=== PATIENT | male | born 1955 | race Caucasian/White ===

== ENCOUNTER 2017-04-13 11:33 | Observation (INO) | payer MEDICARE ==
[~2017-04-13] VITALS: Ht 180.3 cm; Wt 94.5 kg
[~2017-04-13 11:33] MED LIST: GEMF600T3 PO; GLIP5TAB13 PO; LISI1TAB8 PO; OMEP40CA36 PO; TAMS0.4C2 PO
[2017-04-13 11:56] LABS: BASOPHILS # (AUTO) 0.1 10^3/uL (0.0-0.1); BASOPHILS % (AUTO) 1 % (0-10); EOSINOPHILS # (AUTO) 0.1 10^3/uL (0.0-0.3); EOSINOPHILS % (AUTO) 1 % (0-10); HEMATOCRIT 42 % (40-54); HEMOGLOBIN 15.1 G/DL (13.3-17.7); LYMPHOCYTES # (AUTO) 2.1 X 10^3 (1.0-4.0); LYMPHOCYTES % (AUTO) 20 % (12-44); MEAN CORPUSCULAR HEMOGLOBIN 29 PG (25-34); MEAN CORPUSCULAR HGB CONC 36 G/DL (32-36); MEAN CORPUSCULAR VOLUME 82 FL (80-99); MEAN PLATELET VOLUME 10.2 FL (7.4-10.4); MONOCYTES # (AUTO) 0.8 X 10^3 (0.0-1.0); MONOCYTES % (AUTO) 8 % (0-12); NEUTROPHILS # (AUTO) 7.4 X 10^3 (1.8-7.8); NEUTROPHILS % (AUTO) 71 % (42-75); PLATELET COUNT 385 10^3/uL (130-400); RED BLOOD COUNT 5.14 10^6/uL (4.35-5.85); RED CELL DISTRIBUTION WIDTH 13.5 % (10.0-14.5); WHITE BLOOD COUNT 10.5 10^3/uL (4.3-11.0)
[2017-04-13 12:13] LABS: ALANINE AMINOTRANSFERASE 18 U/L (0-55); ALBUMIN 3.9 GM/DL (3.2-4.5); ALKALINE PHOSPHATASE 150 U/L (40-136); BILIRUBIN,TOTAL 0.6 MG/DL (0.1-1.0); BUN/CREATININE RATIO 11; CARBON DIOXIDE 20 MMOL/L (21-32); CHLORIDE 97 MMOL/L (98-107); CREATININE SERUM 1.21 MG/DL (0.60-1.30); GFR ESTIMATED > 60; LIPASE 22 U/L (8-78); POTASSIUM 4.1 MMOL/L (3.6-5.0); SODIUM 132 MMOL/L (135-145); TOTAL PROTEIN 7.8 GM/DL (6.4-8.2)
[2017-04-13 12:21] LABS: GLUCOSE 490 MG/DL (70-105)
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
[2017-04-13] MEDS ORDERED: inSUlin (REGULAR) HUMAN 1 UNIT/0.01 ML (CHARGE PER UNIT) IV STA (12:26)
[2017-04-13] MEDS ORDERED: KETOROLAC 30 MG/ML VIAL IVP STA (12:26)
[2017-04-13] MEDS ORDERED: NS IV 1000 ML 1,000 ML IV SCH (12:26)
--- NOTE | 2017-04-13 13:17 | Diagnostic Imaging Report ---
PROCEDURE: CT abdomen and pelvis without contrast. TECHNIQUE: Multiple contiguous axial images were obtained through the abdomen and pelvis without the use of intravenous contrast. INDICATION: Right-sided pain and discomfort near the tip of the liver. History of appendectomy. COMPARISON: None. FINDINGS: The lung bases are clear. The heart is normal in size. There is no pericardial effusion. There is fatty infiltration of the liver with no focal hepatic lesions seen. The spleen appears normal. The pancreas is normal. The adrenal glands are normal. The kidneys appear normal with no hydronephrosis or obstructing stones. The bowel loops are nondistended without evidence of obstruction. The appendix is not seen. No free fluid or free air is seen in the abdomen. There is a focal area of fat stranding and inflammatory change lateral to the right lobe of the liver which measures approximately 10.7 x 3.0 cm in the axial plane (image 35 series 2), and up to 9.8 cm craniocaudal. This appears most consistent with an omental infarct. The urinary bladder is mildly distended. No pelvic masses or lymphadenopathy is seen. Phleboliths are noted in the pelvis. There are degenerative changes at the lumbosacral junction with bilateral L5 pars defects and grade 1-2 anterolisthesis. IMPRESSION: 1. Moderately large area of fat stranding and inflammation lateral to the right lobe of the liver, most consistent with an omental infarct. 2. Degenerative changes at the lumbosacral junction with bilateral L5 pars defects. Dictated by: Dictated on workstation # [id number]
[2017-04-13 14:17] LABS: BILIRUBIN,URINE NEGATIVE (NEGATIVE); CLARITY,URINE CLEAR; COLOR,URINE YELLOW; GLUCOSE, URINE (UA) 4+ (NEGATIVE); KETONES,URINE NEGATIVE (NEGATIVE); LEUKOCYTE ESTERASE ,URINE NEGATIVE (NEGATIVE); NITRITE,URINE NEGATIVE (NEGATIVE); PH,URINE 6 (5-9); PROTEIN,URINE 3+ (NEGATIVE); UROBILINOGEN,URINE NORMAL (NORMAL)
[2017-04-13 14:23] LABS: BACTERIA,URINE NEGATIVE /HPF; RBC,URINE RARE /HPF; WBC,URINE RARE /HPF
[2017-04-13] MEDS ORDERED: LEVOFLOXACIN 750 MG/150 ML IV 150 ML IV STA (15:03)
--- OUTSIDE RECORDS SUMMARY | 2017-04-13 17:23 | XMS REPORT | Continuity of Care Document ---
Author Author [facility] Address Unknown Phone Unavailable Allergies Active Description Code Type Severity Reaction Onset Reported/Identified Relationship to Patient Clinical Status Yes codeine Drug Allergy N/A N/A 12/25/2012 Yes morphine Drug Allergy N/A N/A 12/25/2012 Medications There is no data. Problems Date Dx Coded Attending Type Code Diagnosis Diagnosed By 12/25/2012 KINGS NIETO DO 250.00 DIABETES MELLITUS WITHOUT MENTION OF COMPLICATION TYPE II OR UNSPECIFIED TYPE NOT STATED UNCONTROLLED 12/25/2012 KINGS NIETO DO 300.02 GENERALIZED ANXIETY DISORDER 12/25/2012 KINGS NIETO DO 787.1 HEARTBURN 12/25/2012 KINGS NIETO DO 250.00 DIABETES MELLITUS WITHOUT MENTION OF COMPLICATION TYPE II OR UNSPECIFIED TYPE NOT STATED UNCONTROLLED 12/25/2012 KINGS NIETO DO 300.02 GENERALIZED ANXIETY DISORDER 12/25/2012 KINGS NIETO DO 787.1 HEARTBURN 12/25/2012 ASUNCION TURCIOS APRN 250.00 DIABETES MELLITUS WITHOUT MENTION OF COMPLICATION TYPE II OR UNSPECIFIED TYPE NOT STATED UNCONTROLLED 12/25/2012 ASUNCION TURCIOS APRN 300.02 GENERALIZED ANXIETY DISORDER 12/25/2012 ASUNCION TURCIOS APRN 787.1 HEARTBURN Procedures Code Description [place] [address] A1C (IN-HOUSE) 02/24/2013 PODIATRY VIN RAINEY 02/24/2013 Results There is no data. Encounters ACCT No. Visit Date/Time Discharge Status Pt. Type Provider Facility Loc./Unit Complaint [id number] 02/24/2013 11:17:00 02/24/2013 23:59:59 CLS Outpatient ASUNCION TURCIOS APRN [id number] 02/24/2013 11:17:00 02/24/2013 23:59:59 CLS Outpatient KINGS NIETO DO [id number] 12/25/2012 15:06:00 12/25/2012 23:59:59 CLS Outpatient KINGS NIETO DO
[2017-04-13] MEDS ORDERED: HYDROcodone/APAP 5 MG/325 MG (LORTAB) TAB PO PRN (18:00)
[2017-04-13] MEDS ORDERED: ONDANSETRON 4 MG/2 ML (SDV) Z0FRAN IV PRN (18:00)
[2017-04-13] MEDS ORDERED: CATHETER FLUSH 10 ML SYR IV PRN (18:00)
[2017-04-13] MEDS ORDERED: KETOROLAC 30 MG/ML VIAL IV PRN (18:00)
[2017-04-13] MEDS ORDERED: MONT10TA21 PO (18:11)
[2017-04-13] MEDS ORDERED: RIVA6CAP5 PO (18:11)
[2017-04-13] MEDS ORDERED: CETI10CA PO (18:11)
[2017-04-13] MEDS ORDERED: ASPI-808 PO (18:11)
[2017-04-13] MEDS ORDERED: CARI350T PO (18:11)
[2017-04-13] MEDS ORDERED: LEVE500T99 PO (18:11)
[2017-04-13] MEDS ORDERED: GLIP5TAB13 PO (18:11)
[2017-04-13] MEDS ORDERED: OLAN5TAB25 PO (18:11)
[2017-04-13] MEDS ORDERED: ALPR1TAB2 PO (18:11)
[2017-04-13] MEDS ORDERED: VENL75CA PO (18:11)
[2017-04-13] MEDS ORDERED: GEMF600T PO (18:11)
[2017-04-13] MEDS ORDERED: AMLO5TAB4 PO (18:11)
[2017-04-13] MEDS ORDERED: PROM25TA14 PO (18:11)
[2017-04-13] MEDS ORDERED: OMEP40CA36 PO (18:11)
[2017-04-13] MEDS ORDERED: MULT-1029 PO (18:11)
[2017-04-13] MEDS ORDERED: ATOR10TA PO (18:11)
[2017-04-13] MEDS ORDERED: TAMS0.4C98 PO (18:11)
[2017-04-13] MEDS ORDERED: TIZA4TAB3 PO (18:11)
[2017-04-13] MEDS: FAMOTIDINE 20MG/2ML IV (PEPCID) IV SCH (18:26)
[2017-04-13] MEDS: NS W/KCL 20 MEQ/L 1,000 ML IV SCH (18:26)
[2017-04-13] MEDS: metroNIDAZOLE 500 MG/100 ML IVPB (PRE-MIX) IV SCH (18:27)
[2017-04-13] MEDS ORDERED: PATIENT MAY USE OWN MEDS, ALL MC SCH (18:45)
[2017-04-13] MEDS ORDERED: PROMETHAZINE 25 MG (PHENERGAN) TAB PO PRN (18:45)
[2017-04-13] MEDS ORDERED: CARISOPRODOL 350 MG (SOMA) TAB PO PRN (18:45)
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
[2017-04-13 20:28] VITALS: BP 153/87
[2017-04-13] MEDS: inSUlin (REGULAR) HUMAN 1 UNIT/0.01 ML (CHARGE PER UNIT) SC SCH (20:37)
[2017-04-13] MEDS: amLODIPine 5 MG (NORVASC) TAB PO SCH (20:38)
[2017-04-13] MEDS: ALPRAZolam 1 MG (XANAX) TAB PO SCH (20:38)
[2017-04-13] MEDS: OLANZapine 5 MG (ZyPREXA) TAB PO SCH (20:41)
[2017-04-13] MEDS: LEVETIRACETAM 500 MG (KEPPRA) TAB PO SCH (20:41)
[2017-04-13] MEDS: RIVASTIGMINE 6 MG PO SCH (20:44)
[2017-04-13] MEDS ORDERED: GEMFIBROZIL 600 MG (LOPID) TAB PO SCH (21:00)
[2017-04-13] MEDS ORDERED: VENlafaxine XR 75 MG (EFFEXOR XR) CAP PO SCH (21:00)
[2017-04-13] MEDS ORDERED: MONTELUKAST 10 MG (SINGULAIR) TAB PO SCH (21:00)
[2017-04-13] MEDS ORDERED: TAMSULOSIN 0.4 MG (FLOMAX) CAP PO SCH (21:00)
[2017-04-13] MEDS ORDERED: ATORVASTATIN 10 MG (LIPITOR) TABLET PO SCH (21:00)
[2017-04-14] VITALS: BP 116/55
[2017-04-14] MEDS: NS W/KCL 20 MEQ/L 1,000 ML IV SCH ×3 (01:46→08:38)
[2017-04-14] MEDS: metroNIDAZOLE 500 MG/100 ML IVPB (PRE-MIX) IV SCH ×2 (01:47→10:18)
[2017-04-14 04:00] VITALS: BP 102/55
[2017-04-14] MEDS: inSUlin (REGULAR) HUMAN 1 UNIT/0.01 ML (CHARGE PER UNIT) SC SCH ×2 (05:40→11:16)
[2017-04-14 06:09] LABS: BASOPHILS % (AUTO) 1 % (0-10); EOSINOPHILS # (AUTO) 0.1 10^3/uL (0.0-0.3); EOSINOPHILS % (AUTO) 2 % (0-10); HEMATOCRIT 37 % (40-54); LYMPHOCYTES # (AUTO) 1.7 X 10^3 (1.0-4.0); LYMPHOCYTES % (AUTO) 20 % (12-44); MEAN CORPUSCULAR HEMOGLOBIN 29 PG (25-34); MEAN CORPUSCULAR HGB CONC 35 G/DL (32-36); MEAN CORPUSCULAR VOLUME 83 FL (80-99); MONOCYTES # (AUTO) 0.7 X 10^3 (0.0-1.0); MONOCYTES % (AUTO) 9 % (0-12); NEUTROPHILS # (AUTO) 5.7 X 10^3 (1.8-7.8); NEUTROPHILS % (AUTO) 69 % (42-75); PLATELET COUNT 329 10^3/uL (130-400); RED BLOOD COUNT 4.49 10^6/uL (4.35-5.85); RED CELL DISTRIBUTION WIDTH 13.2 % (10.0-14.5); WHITE BLOOD COUNT 8.2 10^3/uL (4.3-11.0)
[2017-04-14 06:44] LABS: ALANINE AMINOTRANSFERASE 13 U/L (0-55); ALBUMIN 3.3 GM/DL (3.2-4.5); ALKALINE PHOSPHATASE 131 U/L (40-136); BILIRUBIN,TOTAL 0.5 MG/DL (0.1-1.0); BUN/CREATININE RATIO 12; CALCIUM 8.9 MG/DL (8.5-10.1); CARBON DIOXIDE 22 MMOL/L (21-32); CHLORIDE 107 MMOL/L (98-107); CREATININE SERUM 0.82 MG/DL (0.60-1.30); GFR ESTIMATED > 60; GLUCOSE 110 MG/DL (70-105); SODIUM 138 MMOL/L (135-145); TOTAL PROTEIN 6.4 GM/DL (6.4-8.2)
[2017-04-14] MEDS ORDERED: Omeprazole 40 MG CAPSULE PO SCH (07:00)
[2017-04-14] MEDS ORDERED: glipiZIDE 5 MG (GLUCOTROL) TAB PO SCH (07:00)
[2017-04-14] MEDS ORDERED: MULTIVIT W/MINERALS TAB (THERAGRAN M) PO SCH (07:00)
[2017-04-14 08:00] VITALS: BP 114/55
[2017-04-14] MEDS: FAMOTIDINE 20MG/2ML IV (PEPCID) IV SCH (08:38)
[2017-04-14] MEDS: LEVETIRACETAM 500 MG (KEPPRA) TAB PO SCH (08:40)
[2017-04-14] MEDS: RIVASTIGMINE 6 MG PO SCH (08:41)
[2017-04-14] MEDS: OLANZapine 5 MG (ZyPREXA) TAB PO SCH (08:41)
[2017-04-14] MEDS: amLODIPine 5 MG (NORVASC) TAB PO SCH (08:42)
[2017-04-14] MEDS: ALPRAZolam 1 MG (XANAX) TAB PO SCH (08:45)
[2017-04-14] MEDS ORDERED: LEVOFLOXACIN 750 MG/D5W 150 ML PRE-MIX IV SCH (09:00)
[2017-04-14] MEDS ORDERED: ASPIRIN 325 MG (5 GR) TABLET PO SCH (09:00)
--- NOTE | 2017-04-14 10:08 | Progress Note ---
Subjective Date Seen by Provider: Apr 14, 2017 Time Seen by Provider: 10:05 Subjective/Events-last exam Feeling better today. Pain comes and goes, but less. Denies any n/v fever sweats chills shortness of breath or chest pain. Objective Exam Vital Signs Date Time Temp Pulse Resp B/P (MAP) Pulse Ox O2 Delivery O2 Flow Rate FiO2 04/14/17 04:00 97.8 75 16 102/55 (71) 96 Room Air 04/14/17 00:00 98.7 73 18 116/55 (75) 95 Room Air 04/13/17 20:28 98.9 71 16 153/87 (109) 99 Room Air 04/13/17 17:05 Room Air 04/13/17 16:53 97.6 106 20 140/90 (113) 96 04/13/17 11:41 97.6 106 20 140/100 (113) 96 Room Air I & O 04/14/17 07:00 Intake Total 1750 ml Output Total 0 ml Balance 1750 ml Capillary Refill : Less Than 3 Seconds General Appearance: No Apparent Distress HEENT: PERRL/EOMI, Normal ENT Inspection Neck: Normal Inspection, Non Tender Respiratory: No Accessory Muscle Use, No Respiratory Distress Cardiovascular: Regular Rate, Rhythm Gastrointestinal: soft (ruq with very minimal tenderness and can feel fullness to this area), No guarding, No rebound Extremity: Normal Inspection, Normal Range of Motion, Non Tender Neurologic/Psychiatric: Alert, No Motor/Sensory Deficits, Normal Mood/Affect Skin: Warm/Dry Results Lab Laboratory Tests 04/13/17 11:50: White Blood Count 10.5, Red Blood Count 5.14, Hemoglobin 15.1, Hematocrit 42, Mean Corpuscular Volume 82, Mean Corpuscular Hemoglobin 29, Mean Corpuscular Hemoglobin Concent 36, Red Cell Distribution Width 13.5, Platelet Count 385, Mean Platelet Volume 10.2, Neutrophils (%) (Auto) 71, Lymphocytes (%) (Auto) 20 , Monocytes (%) (Auto) 8, Eosinophils (%) (Auto) 1, Basophils (%) (Auto) 1, Neutrophils # (Auto) 7.4, Lymphocytes # (Auto) 2.1, Monocytes # (Auto) 0.8, Eosinophils # (Auto) 0.1, Basophils # (Auto) 0.1, Sodium Level 132L, Potassium Level 4.1, Chloride Level 97L, Carbon Dioxide Level 20L, Anion Gap 15H, Blood Urea Nitrogen 13, Creatinine 1.21, Estimat Glomerular Filtration Rate > 60, BUN/ Creatinine Ratio 11, Glucose Level 490*H, Calcium Level 10.0, Total Bilirubin 0.6, Aspartate Amino Transf (AST/SGOT) 25, Alanine Aminotransferase (ALT/SGPT) 18, Alkaline Phosphatase 150H, Total Protein 7.8, Albumin 3.9, Lipase 22 04/13/17 13:50: 04/13/17 14:05: Urine Color YELLOW, Urine Clarity CLEAR, Urine pH 6, Urine Specific [place] 1.015L, Urine Protein 3+H, Urine Glucose (UA) 4+H, Urine Ketones NEGATIVE, Urine Nitrite NEGATIVE, Urine Bilirubin NEGATIVE, Urine Urobilinogen NORMAL, Urine Leukocyte Esterase NEGATIVE, Urine RBC (Auto) 1+H, Urine RBC RARE, Urine WBC RARE, Urine Squamous Epithelial Cells NONE, Urine Crystals NONE, Urine Bacteria NEGATIVE, Urine Casts PRESENT, Urine Hyaline Casts 2-5H, Urine Mucus NEGATIVE, Urine Culture Indicated NO 04/13/17 15:22: Glucometer 190H 04/13/17 19:55: Glucometer 222H 04/14/17 05:38: Glucometer 103 04/14/17 05:48: White Blood Count 8.2, Red Blood Count 4.49, Hemoglobin 13.0L, Hematocrit 37L, Mean Corpuscular Volume 83, Mean Corpuscular Hemoglobin 29, Mean Corpuscular Hemoglobin Concent 35, Red Cell Distribution Width 13.2, Platelet Count 329, Mean Platelet Volume 10.0, Neutrophils (%) (Auto) 69, Lymphocytes (%) (Auto) 20 , Monocytes (%) (Auto) 9, Eosinophils (%) (Auto) 2, Basophils (%) (Auto) 1, Neutrophils # (Auto) 5.7, Lymphocytes # (Auto) 1.7, Monocytes # (Auto) 0.7, Eosinophils # (Auto) 0.1, Basophils # (Auto) 0.0, Sodium Level 138, Potassium Level 4.0, Chloride Level 107, Carbon Dioxide Level 22, Anion Gap 9, Blood Urea Nitrogen 10, Creatinine 0.82, Estimat Glomerular Filtration Rate > 60, BUN/ Creatinine Ratio 12, Glucose Level 110H, Calcium Level 8.9, Total Bilirubin 0.5 , Aspartate Amino Transf (AST/SGOT) 22, Alanine Aminotransferase (ALT/SGPT) 13, Alkaline Phosphatase 131, Total Protein 6.4, Albumin 3.3 Assessment/Plan Assessment/Plan Assessment/Plan 61 year old male with right upper quadrant pain. Omental infarct vs short segment colitis, hyperglycemia, hyponatremia labs improved iv fluids pain control clear liquid diet repeat labs in am conservative management at this time, no surgical intervention at this time will need colonoscopy in about 6 weeks to further assess colon. medical management Clinical Quality Measures DVT/VTE Risk/Contraindication: Risk Factor Score Per Nursin RFS Level Per Nursing on Admit: 2=Moderate EVGENY HENRY DO Apr 14, 2017 10:08
[2017-04-14] MEDS ORDERED: INFLUENZA TRIvalent 2017-2018 0.5 ML/45 MCG SYR IM ONE (10:45)
--- NOTE | 2017-04-14 11:18 | Short Stay Summary-Hospitalist ---
HPI History of Present Illness: HPI/Chief Complaint CC: Acute colitis right colon HPI: This is a 61-year-old white male disabled from back injury of Alanna Jones with Dr. Yusef cerna in [place] who presents to the ER with abdominal pain and fever. Apparently he's had right upper quadrant abdominal pain and diarrhea on and off for several months that it worsened to the point it concerned him enough to report to the ER. He was found to have an isolated colitis on CT scan and Dr. Womack was consulted. He was placed on empiric antibiotics in case this was diverticulitis but upon further assessment and evaluation of other data it was assessed that this was a self-limited colitis that did not require IV antibiotics or antibiotics at all and will need a follow -up colonoscopy and evaluation as an outpatient. The CT scan had a vague area of concern of omental infarction but that was inconsistent with the clinical scenario. He is able to eat and drink and pain is resolved and wishes to go home. 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) Alcohol Use: Denies Use Recreational Drug Use: No Smoking Status: Former Smoker (Quit 8 years ago) Former Smoker, Quit: Apr 13, 2009 Type Used: Cigarettes Physical Abuse Screen: No Sexual Abuse: No Recent Foreign Travel: No Contact w/other who traveled: No Recent Hopitalizations: No Recent Infectious Disease Expo: No Immunizations Up To Date Pediatric: Yes Seasonal Allergies Seasonal Allergies: No Surgeries Yes (back) Appendectomy, Bowel Surgery (Partial colon resection) Respiratory Yes COPD Currently Using CPAP: No Currently Using BIPAP: No Cardiovascular Yes Coronary Artery Disease, High Cholesterol, Hypertension Neurological Yes (restless legs, EARLY ALZHIEMERS) Seizure Disorder Reproductive System Sexually Transmitted Disease: No HIV/AIDS: No Genitourinary Yes Prostate Problems Gastrointestinal Yes Gastroesophageal Reflux, Diverticulosis Musculoskeletal Yes Back Injury, Chronic Back Pain Endocrine History of Endocrine Disorders: Yes Endocrine Disorders: Diabetes, Non-Insulin dep HEENT History of HEENT Disorders: No Cancer Yes Skin Type of Treatment: Surgical Intervention Psychosocial History of Psychiatric Problem: Yes Behavioral Health Disorders: Anxiety, Depression Integumentary History of Skin or Integumenta: No (RING WORM ON HANDS-TREATED) Blood Transfusions History of Blood Disorders: No Adverse Reaction to a Blood Tr: No Family Medical History Significant Family History: No Pertinent Family Hx Family Hx: Alzheimer's disease 19 MOTHER Cardiovascular disease 19 FATHER 19 MOTHER Completed stroke 19 FATHER Respiratory disorder 19 FATHER Review of Systems Constitutional: see HPI, fever EENTM: no symptoms reported Respiratory: no symptoms reported Cardiovascular: no symptoms reported Gastrointestinal: abdominal pain (RUQ) Genitourinary: no symptoms reported Musculoskeletal: no symptoms reported Skin: no symptoms reported Psychiatric/Neurological: No Symptoms Reported All Other Systems Reviewed Negative Unless Noted: Yes Physical Exam Physical Exam Vital Signs Vital Signs - First Documented 04/13/17 11:41 Temp 97.6 Pulse 106 Resp 20 B/P (MAP) 140/100 (113) Pulse Ox 96 O2 Delivery Room Air Capillary Refill : Less Than 3 Seconds General Appearance: No Apparent Distress, WD/WN, Chronically ill Eyes: Bilateral Eye Normal Inspection, Bilateral Eye PERRL HEENT: PERRL/EOMI, Normal ENT Inspection, Pharynx Normal Neck: Full Range of Motion, Normal Inspection, Non Tender, Supple, Carotid Bruit Respiratory: Chest Non Tender, Lungs Clear, Normal Breath Sounds, No Accessory Muscle Use, No Respiratory Distress Cardiovascular: Regular Rate, Rhythm, No Edema, No Gallop, No JVD, No Murmur, Normal Peripheral Pulses Gastrointestinal: Normal Bowel Sounds, No Organomegaly, No Pulsatile Mass, Non Tender (No tenderness on exam today), Soft Back: Normal Inspection, No CVA Tenderness, No Vertebral Tenderness Extremity: Normal Capillary Refill, Normal Inspection, Normal Range of Motion, Non Tender, No Calf Tenderness, No Pedal Edema Neurologic/Psychiatric: Alert, Oriented x3, No Motor/Sensory Deficits, Normal Mood/Affect Skin: Normal Color, Warm/Dry Lymphatic: No Adenopathy Results Results/Procedures Lab Laboratory Tests 04/13/17 11:50 04/14/17 05:48 Short Stay Diagnosis Discharge Diagnosis-Short Stay Admission Diagnosis Assessment: Colitis right colon with history of colon resection partial Diabetes mellitus Seizure disorder Early Alzheimer's dementia BPH GERD Hypertension Former smoker Final Discharge Diagnosis Assessment: Colitis right colon with history of colon resection partial assessed to be self- limited will not require IV antibiotics or antibiotics at discharge Diabetes mellitus Seizure disorder Early Alzheimer's dementia BPH GERD Hypertension Former smoker Conclusion Plan Plan: Discharge home Has a follow-up in primary care clinic next week anyway [place] diet Rest and drink plenty of fluids Resume all home meds Return if anything worsens Needs colonoscopy as an outpatient Clinical Quality Measures DVT/VTE Risk/Contraindication: Risk Factor Score Per Nursin RFS Level Per Nursing on Admit: 2=Moderate CARMELA LEVINE DO Apr 14, 2017 11:18
[2017-04-14 12:00] VITALS: BP 114/55
== END 2017-04-14 11:14 | disposition home or self-care (01) ==
LOC: EDUNIT# 11:33 → ER 11:36 → UNDOADMOB 16:41 → 4TH 16:41 → UNDODISOB 04-14 12:00
PROVIDERS: ADMIT Internal Medicine; ATTEND Internal Medicine
DX: K52.9 Noninfective gastroenteritis and colitis, unspecified (principal); E87.1 Hypo-osmolality and hyponatremia; E11.65 Type 2 diabetes mellitus with hyperglycemia; I25.10 Atherosclerotic heart disease of native coronary artery without angina pectoris; I10 Essential (primary) hypertension; E78.00 Pure hypercholesterolemia, unspecified; G40.909 Epilepsy, unspecified, not intractable, without status epilepticus; G25.81 Restless legs syndrome; G30.9 Alzheimer's disease, unspecified; F02.80 Dementia in other diseases classified elsewhere, unspecified severity, without behavioral disturbance, psychotic disturbance, mood disturbance, and anxiety; N40.0 Benign prostatic hyperplasia without lower urinary tract symptoms; Z87.891 Personal history of nicotine dependence; Z79.82 Long term (current) use of aspirin; Z79.899 Other long term (current) drug therapy
CPT/HCPCS: 36415; 74176; 80053; 80177; 81000; 82962; 83690; 85025; 96361; 96374; 96375

== ENCOUNTER 2017-12-18 18:11 | Emergency (ER) | payer MEDICARE, MEDICAID ==
[~2017-12-18] VITALS: Ht 172.7 cm; Wt 90.7 kg
[~2017-12-18 18:11] MED LIST changes: +ALPR1TAB2 PO; +AMLO5TAB4 PO; +ASPI-808 PO; +ATOR10TA PO; +CARI350T PO; +CETI10CA PO; +GEMF600T PO; -GEMF600T3 PO; +GEMF600T4 PO; +LEVE500T99 PO; +MONT10TA21 PO; +MULT-1029 PO; +OLAN5TAB25 PO; +PROM25TA14 PO; +RIVA6CAP5 PO; +TAMS0.4C98 PO; +TIZA4TAB3 PO; +VENL75CA PO
--- OUTSIDE RECORDS SUMMARY | 2017-12-18 18:16 | XMS REPORT ---
Author Author JOEY DUQUE [facility] Address [address] [place] [address] Care Team Providers Care Loading Rack Supervisor Name Role Phone NETO JOEY Unavailable PROBLEMS Type Condition ICD9-CM Code [id number] Code Onset Dates Condition Status SNOMED Code Problem Alzheimer''s disease with early onset G30.0 Active 7652870 Problem COPD mixed type J44.9 Active 95979077 Problem Type 2 diabetes mellitus with hyperglycemia, without long-term current use of insulin E11.65 Active 28941766 Problem Mixed hyperlipidemia E78.2 Active 560346508 Problem Dementia in other diseases classified elsewhere with behavioral disturbance F02.81 Active 766613190 Problem Seizure disorder G40.909 Active 070750558 Problem Chronic GERD K21.9 Active 730705400 Problem Mood disorder F39 Active 49665124 Problem Essential hypertension I10 Active 01402612 ALLERGIES Substance Reaction Event Type Date Status Morphine vomiting Drug Allergy Oct, Active Codeine vomiting Drug Allergy Oct, Active ENCOUNTERS Encounter Location Date Diagnosis [id number] [place] [address] [id number] Oct, Alzheimer''s disease with early onset G30.0 ; Dementia in other diseases classified elsewhere with behavioral disturbance F02.81 ; Type 2 diabetes mellitus with hyperglycemia, without long-term current use of insulin E11.65 ; Seizure disorder G40.909 ; Mixed hyperlipidemia E78.2 ; Mood disorder F39 ; COPD mixed type J44.9 ; Chronic GERD K21.9 ; Essential hypertension I10 and History of BPH Z87.438 [address] [place] [id number] Sep, Alzheimer''s disease with early onset G30.0 ; Type 2 diabetes mellitus with hyperglycemia, without long-term current use of insulin E11.65 ; Seizure disorder G40.909 and Mixed hyperlipidemia E78.2 [place] [id number] [place] [address] [id number] Jul, Mood disorder F39 [facility] [id number] [place] [address] [id number] May, Alzheimer''s disease with early onset G30.0 ; Dementia in other diseases classified elsewhere with behavioral disturbance F02.81 ; Type 2 diabetes mellitus with hyperglycemia, without long-term current use of insulin E11.65 ; Seizure disorder G40.909 ; Mixed hyperlipidemia E78.2 ; Mood disorder F39 ; Muscle spasm M62.838 ; COPD mixed type J44.9 ; Chronic GERD K21.9 ; Essential hypertension I10 and History of BPH Z87.438 [facility] [id number] [place] [address] [id number] May, [facility] [id number] [place] [address] May, [facility] [id number] [place] [phone] May, [facility] [id number] [place] [address] May, [facility] [id number] [place] [address] [id number] May, [facility] [id number] [place] [address] [id number] May, [facility] [id number] [place] [address] May, [facility] [id number] [place] [address] [id number] Apr, [facility] [id number] [place] [address] Apr, [facility] [id number] [place] [address] [id number] Apr, [facility] [id number] [place] [address] Apr, [facility] [id number] [place] [address] [id number] Mar, [facility] [address] [address] Mar, [facility] [id number] [place] [id number] Mar, [facility] [address] [address] Mar, [facility] [id number] [place] [id number] Mar, [facility] [address] [address] Mar, [facility] [id number] [place] [address] [id number] Feb, [facility] [address], [place] [address] Feb, [facility] [id number] [place] [phone] Feb, [facility] [address], [place] [address] Feb, [facility] [id number] [place] [id number] Jan, [facility] [address], [place] [address] Jan, [facility] [id number] [place] [phone] Dec, [facility] [address], [place] [address] Dec, IMMUNIZATIONS No Known Immunizations SOCIAL HISTORY Never Assessed REASON FOR VISIT Pain management (chronic), new provider visit Misbah MORAN PLAN OF CARE Activity Details Follow Up 3 Months, prn Reason:CHM VITAL SIGNS Height 68.5 in 2017-10-17 Weight 201.0 lbs 2017-10-17 Temperature 96.4 degrees Fahrenheit 2017-10-17 Heart Rate 94 bpm 2017-10-17 Respiratory Rate 18 2017-10-17 BMI 30.11 kg/m2 2017-10-17 Blood pressure systolic 140 mmHg 2017-10-17 Blood pressure diastolic 80 mmHg 2017-10-17 MEDICATIONS Medication Instructions Dosage Frequency Start Date End Date Duration Status Olanzapine 10 MG Orally Once a day 1 tablet 24h Active Flomax 0.4 MG 1 capsule Once a day Orally 0 0 Active Centrum Silver - Active Promethazine HCl 25 MG Orally every 12 hrs 1 tablet as needed 12h Active Keppra 500 MG Orally Twice a day 1 tablet 12h Active Zyrtec Allergy 10 MG 1 tablet Once a day Orally 0 0 Active Omeprazole 40 MG Orally Once a day 1 capsule 24h 0 Active Rivastigmine Tartrate 6 MG Orally Twice a day 1 capsule with food 12h Active Lipitor 10 MG Orally Once a day 1 tablet 24h Active Singulair 10 MG Orally Once a day 1 tablet in the evening 24h 0 Active Tizanidine HCl 6 MG Orally 2 times a day 1 capsule as needed 12h 3 Nov, 2017 28 days Active Aspirin EC 325 MG Orally Once a day 1 tablet 24h 0 Active Flomax 0.4 MG Orally Once a day 1 capsule 24h 0 Active Effexor XR 75 MG Orally Once a day 1 capsule with food 24h 0 Active GlipiZIDE 5 MG 1 tablet Once a day Orally 0 Active RESULTS No Results PROCEDURES Procedure Date Ordered Result Body Site [facility] VISIT ESTABLISHED PATIENT Oct 17, 2017 INSTRUCTIONS MEDICATIONS ADMINISTERED No Known Medications MEDICAL (GENERAL) HISTORY Type Description Date Medical History type II diabetes Medical History anxiety Medical History chronic obstructive pulmonary disease (COPD) Medical History alzheimers disease Medical History dementia Medical History seizures Medical History hypertension Surgical History back fusion 1987 Surgical History colon resection due to diverticulitis 2002 Hospitalization History Surgery(s) only Hospitalization History seizures
--- OUTSIDE RECORDS SUMMARY | 2017-12-18 18:16 | XMS REPORT ---
Author Author JOEY DUQUE [facility] Address [address] [place] [address] Care Team Providers Care Display Card Writer Name Role Phone NETO JOEY Unavailable PROBLEMS Type Condition ICD9-CM Code [id number] Code Onset Dates Condition Status SNOMED Code Problem Alzheimer''s disease with early onset G30.0 Active 5223331 Problem COPD mixed type J44.9 Active 91190519 Problem Type 2 diabetes mellitus with hyperglycemia, without long-term current use of insulin E11.65 Active 81728124 Problem Mixed hyperlipidemia E78.2 Active 948330428 Problem Dementia in other diseases classified elsewhere with behavioral disturbance F02.81 Active 232162253 Problem Seizure disorder G40.909 Active 800545501 Problem Chronic GERD K21.9 Active 344534351 Problem Mood disorder F39 Active 06234974 Problem Essential hypertension I10 Active 43665072 ALLERGIES No Information ENCOUNTERS Encounter Location Date Diagnosis [address] [id number] Nov, Alzheimer''s disease with early onset G30.0 [place] [id number] [place] [id number] Nov, [address] [id number] Nov, History of BPH Z87.438 ; Chronic GERD K21.9 and Mixed hyperlipidemia E78.2 [place] [id number] [place] [address] [id number] Nov, Seizure disorder G40.[address] [id number] Nov, Mood disorder F39 [place] [id number] [place] [address] [id number] Oct, Alzheimer''s disease with early onset G30.0 ; Dementia in other diseases classified elsewhere with behavioral disturbance F02.81 ; Type 2 diabetes mellitus with hyperglycemia, without long-term current use of insulin E11.65 ; Seizure disorder G40.909 ; Mixed hyperlipidemia E78.2 ; Mood disorder F39 ; COPD mixed type J44.9 ; Chronic GERD K21.9 ; Essential hypertension I10 and History of BPH Z87.[address] [place] [address] [id number] Sep, Alzheimer''s disease with early onset G30.0 ; Type 2 diabetes mellitus with hyperglycemia, without long-term current use of insulin E11.65 ; Seizure disorder G40.909 and Mixed hyperlipidemia E78.2 [place] [id number] [place] [address] [id number] Jul, Mood disorder F39 [place] [id number] [place] [address] [id number] May, Alzheimer''s disease with early onset G30.0 [...] hypertension I10 and History of BPH Z87.438 [place] [id number] [place] [address] [id number] May, [facility] [id number] [place] [address] May, [facility] [id number] [place] [address] [id number] May, [facility] [id number] [place] [address] [id number] May, [place] [id number] [place] [address] [id number] May, [address] [place] [address] [id number] May, [facility] [address] [address] May, [facility] [address] [id number] [place] [id number] Apr, [facility] [address] [id number] [address] Apr, [facility] [address] [id number] [place] [id number] Apr, [facility] [address] [facility] [id number], [place] [address] Apr, [facility] [address] [id number] [place] [id number] Mar, [facility] [address] [facility] [id number][place] [address] Mar, [facility] [address] [id number] [place] [id number] Mar, [facility] [address] [id number] [address] Mar, [facility] [address] [id number][place] [id number] Mar, [facility] [address] [facility] [id number], [place] [address] Mar, [facility] [address] [id number][place] [id number] Feb, [facility] [address] [facility] [id number], [place] [address] Feb, [facility] [address] [id number], [place] [id number] Feb, [facility] [address] [facility] [id number], [place] [address] Feb, [facility] [address] [id number][place] [id number] Jan, [facility] [address] [facility] [id number], [place] [address] Jan, [facility] [address] [id number] [place] [id number] Dec, [facility] [address] [facility] [id number] [place] [id number] Dec, IMMUNIZATIONS No Known Immunizations SOCIAL HISTORY Never Assessed REASON FOR VISIT med refill PLAN OF CARE VITAL SIGNS MEDICATIONS Medication Instructions Dosage Frequency Start Date End Date Duration Status Singulair 10 MG Orally Once a day 1 tablet in the evening 24h 90 days Active Tizanidine HCl 6 MG Orally at bedtime as needed 2 capsules 28 days Active Rivastigmine Tartrate 6 MG Orally Twice a day 1 capsule with food 12h 90 days Active Zyrtec Allergy 10 mg Orally Once a day 1 tablet 24h 90 days Active GlipiZIDE 5 mg Orally Once a day 1 tablet 24h 90 days Active RESULTS No Results PROCEDURES No Known procedures INSTRUCTIONS MEDICATIONS ADMINISTERED No Known Medications MEDICAL [...]
--- OUTSIDE RECORDS SUMMARY | 2017-12-18 18:16 | XMS REPORT ---
Author Author JOEY DUQUE [facility] Address [address] [place] [address] Care Team Providers Care Multi Purpose Machine Operator Name Role Phone NETO JOEY Unavailable PROBLEMS Type Condition ICD9-CM Code PLT65-LX Code Onset Dates Condition Status SNOMED Code Problem Alzheimer''s disease with early onset G30.0 Active 1977658 Problem COPD mixed type J44.9 Active 54992267 Problem Type 2 diabetes mellitus with hyperglycemia, without long-term current use of insulin E11.65 Active 31452238 Problem Mixed hyperlipidemia E78.2 Active 619427109 Problem Dementia in other diseases classified elsewhere with behavioral disturbance F02.81 Active 268348916 Problem Seizure disorder G40.909 Active 323362003 Problem Chronic GERD K21.9 Active 981562362 Problem Mood disorder F39 Active 90736356 Problem Essential hypertension I10 Active 79255123 ALLERGIES No Information ENCOUNTERS Encounter Location Date Diagnosis [place] [address] [id number] Nov, Seizure disorder G40.909 [facility] [address] [id number] [place] [address] [phone] Nov, Mood disorder F39 [place] [address] [id number] [place] [address] [phone] Oct, Alzheimer''s disease with early onset G30.0 ; Dementia in other diseases classified elsewhere with behavioral disturbance F02.81 ; Type 2 diabetes mellitus with hyperglycemia, without long-term current use of insulin E11.65 ; Seizure disorder G40.909 ; Mixed hyperlipidemia E78.2 ; Mood disorder F39 ; COPD mixed type J44.9 ; Chronic GERD K21.9 ; Essential hypertension I10 and History of BPH Z87.438 [place] [id number] [place] [address] [phone] Sep, Alzheimer''s disease with early onset G30.0 ; Type 2 diabetes mellitus with hyperglycemia, without long-term current use of insulin E11.65 ; Seizure disorder G40.909 and Mixed hyperlipidemia E78.2 [facility] [id number] [place] [address] [id number] Jul, Mood disorder F39 [facility] [id number] [place] [address] [phone] May, Alzheimer''s disease with early onset G30.0 [...] hypertension I10 and History of BPH Z87.438 [facility] [id number] [place] [address] [phone] May, [facility] [address] [address] May, [facility] [id number] [place] [phone] May, [facility] [address] [address] May, [facility] [id number] [place] [address] [phone] May, [facility] [id number] [place] [address] [phone] May, [facility] [id number] [place] [phone] May, [facility] [id number] [place] [address] [phone] Apr, [facility] [address] [address] Apr, [facility] [id number] [place] [address] [phone] Apr, [facility] [address] [place] [address] Apr, [facility] [id number] [phone] Mar, [facility] [address] [address] Mar, [facility] [id number] [phone] Mar, [facility] [address], [place] [address] Mar, [facility] [id number] [phone] Mar, [facility] [address], [place] [address] Mar, [facility] [id number] [phone] Feb, [facility] [id number], [place] [address] Feb, [facility] [id number] [phone] Feb, [facility] [address], [place] [address] Feb, [facility] [address] [place] [address] [id number] [phone] Jan, [facility] [id number], [place] [address] Jan, [facility] [address] [facility] [id number] [phone] Dec, [facility] [address], [place] [address] Dec, IMMUNIZATIONS No Known Immunizations SOCIAL HISTORY Never Assessed REASON FOR VISIT med refill PLAN OF CARE VITAL SIGNS MEDICATIONS Medication Instructions Dosage Frequency Start Date End Date Duration Status Effexor XR 75 mg Orally Once a day 1 capsule with food 24h 0 days Active RESULTS No Results PROCEDURES No [...]
--- OUTSIDE RECORDS SUMMARY | 2017-12-18 18:17 | XMS REPORT | Continuity of Care Document ---
Author Author [facility] Address Unknown Phone Unavailable Allergies Active Description Code Type Severity Reaction Onset Reported/Identified Relationship to Patient Clinical Status Yes codeine Drug Allergy N/A N/A 12/25/2012 Yes morphine Drug Allergy N/A N/A 12/25/2012 Yes codeine [id number] Drug Allergy Unknown N/A 08/27/2015 Yes morphine [id number] Drug Allergy Unknown nausea 08/27/2015 Medications There is no data. Problems Date [...] DISORDER 12/25/2012 ASUNCION TURCIOS APRN 787.1 HEARTBURN 08/27/2015 BRUNILDA MCNEIL MD Ot R00.0 TACHYCARDIA, UNSPECIFIED 08/27/2015 BRUNILDA MCNEIL MD Ot R20.8 OTHER DISTURBANCES OF SKIN SENSATION 08/27/2015 BRUNILDA MCNEIL MD Ot R53.1 WEAKNESS 09/01/2015 BRUNILDA MCNEIL MD Ot R00.0 TACHYCARDIA, UNSPECIFIED 09/01/2015 BRUNILDA MCNEIL MD Ot R20.8 OTHER DISTURBANCES OF SKIN SENSATION 09/01/2015 TARUN ANGEL, BRUNILDA Tong Ot R53.1 WEAKNESS 04/14/2017 JULIANNA DO GALLO Ot E11.65 TYPE 2 DIABETES MELLITUS WITH HYPERGLYCE 04/14/2017 JULIANNA DO GALLO Ot E78.00 PURE HYPERCHOLESTEROLEMIA, UNSPECIFIED 04/14/2017 LEVINE DO GALLO Ot E87.1 HYPO-OSMOLALITY AND HYPONATREMIA 04/14/2017 JULIANNA DO GALLO Ot F02.80 DEMENTIA IN OTH DISEASES CLASSD ELSWHR W 04/14/2017 LEVINE DO, GALLO Ot G25.81 RESTLESS LEGS SYNDROME 04/14/2017 LEVINE DO GALLO Ot G30.9 ALZHEIMER'S DISEASE, UNSPECIFIED 04/14/2017 LEVINE DO GALLO Ot G40.909 EPILEPSY, UNSP, NOT INTRACTABLE, WITHOUT 04/14/2017 LEVINE DO, GALLO Ot I10 ESSENTIAL (PRIMARY) HYPERTENSION 04/14/2017 JULIANNA DO GALLO Ot I25.10 ATHSCL HEART DISEASE OF [place] CORONARY 04/14/2017 JULIANNA DO GALLO Ot K52.9 NONINFECTIVE GASTROENTERITIS AND COLITIS 04/14/2017 JULIANNA DO GALLO Ot N40.0 BENIGN PROSTATIC HYPERPLASIA WITHOUT LOW 04/14/2017 JULIANNA DO GALLO Ot Z79.82 [facility] (CURRENT) USE OF ASPIRIN 04/14/2017 JULIANNA SALAZAR GALLO Ot Z79.899 OTHER [facility] (CURRENT) DRUG THERAPY 04/14/2017 JULIANNA SALAZAR GALLO Ot Z87.891 PERSONAL HISTORY OF NICOTINE DEPENDENCE 04/14/2017 JULIANNA SALAZAR GALLO Ot E11.65 TYPE 2 DIABETES MELLITUS WITH HYPERGLYCE 04/14/2017 JULIANNA DO GALLO Ot E78.00 PURE HYPERCHOLESTEROLEMIA, UNSPECIFIED 04/14/2017 JULIANNA DO GALLO Ot E87.1 HYPO-OSMOLALITY AND HYPONATREMIA 04/14/2017 JULIANNA SALAZAR GALLO Ot F02.80 DEMENTIA IN OTH DISEASES CLASSD ELSWHR W 04/14/2017 LEVINE DO GALLO Ot G25.81 RESTLESS LEGS SYNDROME 04/14/2017 LEVINE DO GALLO Ot G30.9 ALZHEIMER'S DISEASE, UNSPECIFIED 04/14/2017 LEVINE DO GALLO Ot G40.909 EPILEPSY, UNSP, NOT INTRACTABLE, WITHOUT 04/14/2017 GALLO ELVINE DO Ot I10 ESSENTIAL (PRIMARY) HYPERTENSION 04/14/2017 JULIANNA SALAZARGALLO Ot I25.10 ATHSCL HEART DISEASE OF [place] CORONARY 04/14/2017 LEVINEGALLO MARSHALL DO Ot K52.9 NONINFECTIVE GASTROENTERITIS AND COLITIS 04/14/2017 LEVINEGALLO MARSHALL DO Ot N40.0 BENIGN PROSTATIC HYPERPLASIA WITHOUT LOW 04/14/2017 LEVINEGALLO MARSHALL DO Ot Z79.82 [facility] (CURRENT) USE OF ASPIRIN 04/14/2017 GALLO LEVINE DO Ot Z79.899 OTHER CLINICAL EDUCATION CONSULTANT (CURRENT) DRUG THERAPY 04/14/2017 LEVINEGALLO MARSHALL DO Ot Z87.891 PERSONAL HISTORY OF NICOTINE DEPENDENCE Procedures Code Description [place] [address] A1C (IN-HOUSE) 02/24/2013 PODIATRY VIN RANIEY 02/24/2013 Results Test Result Range Complete blood count (CBC) with automated white blood cell (WBC) differential - 04/13/17 11:50 Blood leukocytes automated count (number/volume) 10.5 10*3/uL 4.3-11.0 Blood erythrocytes automated count (number/volume) 5.14 10*6/uL 4.35-5.85 Venous blood hemoglobin measurement (mass/volume) 15.1 g/dL 13.3-17.7 Blood hematocrit (volume fraction) 42 % 40-54 Automated erythrocyte mean corpuscular volume 82 [foz_us] 80-99 Automated erythrocyte mean corpuscular hemoglobin (mass per erythrocyte) 29 pg 25-34 Automated erythrocyte mean corpuscular hemoglobin concentration measurement ( mass/volume) 36 g/dL 32-36 Automated erythrocyte distribution width ratio 13.5 % 10.0-14.5 Automated blood platelet count (count/volume) 385 10*3/uL 130-400 Automated blood platelet mean volume measurement 10.2 [foz_us] 7.4-10.4 Automated blood neutrophils/100 leukocytes 71 % 42-75 Automated blood lymphocytes/100 leukocytes 20 % 12-44 Blood monocytes/100 leukocytes 8 % 0-12 Automated blood eosinophils/100 leukocytes 1 % 0-10 Automated blood basophils/100 leukocytes 1 % 0-10 Blood neutrophils automated count (number/volume) 7.4 10*3 1.8-7.8 Blood lymphocytes automated count (number/volume) 2.1 10*3 1.0-4.0 Blood monocytes automated count (number/volume) 0.8 10*3 0.0-1.0 Automated eosinophil count 0.1 10*3/uL 0.0-0.3 Automated blood basophil count (count/volume) 0.1 10*3/uL 0.0-0.1 Comprehensive metabolic panel - 04/13/17 11:50 Serum or plasma sodium measurement (moles/volume) 132 mmol/L 135-145 Serum or plasma potassium measurement (moles/volume) 4.1 mmol/L 3.6-5.0 Serum or plasma chloride measurement (moles/volume) 97 mmol/L 98-107 Carbon dioxide 20 mmol/L 21-32 Serum or plasma anion gap determination (moles/volume) 15 mmol/L 5-14 Serum or plasma urea nitrogen measurement (mass/volume) 13 mg/dL 7-18 Serum or plasma creatinine measurement (mass/volume) 1.21 mg/dL 0.60-1.30 Serum or plasma urea nitrogen/creatinine mass ratio 11 NRG Serum or plasma creatinine measurement with calculation of estimated glomerular filtration rate > NRG Serum or plasma glucose measurement (mass/volume) 490 mg/dL 70-105 Serum or plasma calcium measurement (mass/volume) 10.0 mg/dL 8.5-10.1 Serum or plasma total bilirubin measurement (mass/volume) 0.6 mg/dL 0.1-1.0 Serum or plasma alkaline phosphatase measurement (enzymatic activity/volume) 150 U/L 40-136 Serum or plasma aspartate aminotransferase measurement (enzymatic activity/ volume) 25 U/L 5-34 Serum or plasma alanine aminotransferase measurement (enzymatic activity/volume ) 18 U/L 0-55 Serum or plasma protein measurement (mass/volume) 7.8 g/dL 6.4-8.2 Serum or plasma albumin measurement (mass/volume) 3.9 g/dL 3.2-4.5 Lipase - 04/13/17 11:50 Lipase 22 U/L 8-78 Levetiracetam level - 04/13/17 13:50 Levetiracetam level 16 % NRG Complete urinalysis with reflex to culture - 04/13/17 14:05 Urine color determination YELLOW NRG Urine clarity determination CLEAR NRG Urine pH measurement by test strip 6 5-9 Specific gravity of urine by test strip 1.015 1.016- 1.022 Urine protein assay by test strip, semi-quantitative 3+ NEGATIVE Urine glucose detection by automated test strip 4+ NEGATIVE Erythrocytes detection in urine sediment by light microscopy 1+ NEGATIVE Urine ketones detection by automated test strip NEGATIVE NEGATIVE Urine nitrite detection by test strip NEGATIVE NEGATIVE Urine total bilirubin detection by test strip NEGATIVE NEGATIVE Urine urobilinogen measurement by automated test strip (mass/volume) NORMAL NORMAL Urine leukocyte esterase detection by dipstick NEGATIVE NEGATIVE Automated urine sediment erythrocyte count by microscopy (number/high power field) RARE NRG Automated urine sediment leukocyte count by microscopy (number/high power field ) RARE NRG Bacteria detection in urine sediment by light microscopy NEGATIVE NRG Squamous epithelial cells detection in urine sediment by light microscopy NONE NRG Crystals detection in urine sediment by light microscopy NONE NRG Casts detection in urine sediment by light microscopy PRESENT NRG Mucus detection in urine sediment by light microscopy NEGATIVE NRG Complete urinalysis with reflex to culture NO NRG Hyaline casts detection in urine sediment by light microscopy 2-5 NRG Capillary blood glucose measurement by glucometer (mass/volume) - 04/13/17 15: 22 Capillary blood glucose measurement by glucometer (mass/volume) 190 mg/dL 70-110 Capillary blood glucose measurement by glucometer (mass/volume) - 04/13/17 19: 55 Capillary blood glucose measurement by glucometer (mass/volume) 222 mg/dL 70-110 Capillary blood glucose measurement by glucometer (mass/volume) - 04/14/17 05: 38 Capillary blood glucose measurement by glucometer (mass/volume) 103 mg/dL 70-110 Complete blood count (CBC) with automated white blood cell (WBC) differential - 04/14/17 05:48 Blood leukocytes automated count (number/volume) 8.2 10*3/uL 4.3-11.0 Blood erythrocytes automated count (number/volume) 4.49 10*6/uL 4.35-5.85 Venous blood hemoglobin measurement (mass/volume) 13.0 g/dL 13.3-17.7 Blood hematocrit (volume fraction) 37 % 40-54 Automated erythrocyte mean corpuscular volume 83 [foz_us] 80-99 Automated erythrocyte mean corpuscular hemoglobin (mass per erythrocyte) 29 pg 25-34 Automated erythrocyte mean corpuscular hemoglobin concentration measurement ( mass/volume) 35 g/dL 32-36 Automated erythrocyte distribution width ratio 13.2 % 10.0-14.5 Automated blood platelet count (count/volume) 329 10*3/uL 130-400 Automated blood platelet mean volume measurement 10.0 [foz_us] 7.4-10.4 Automated blood neutrophils/100 leukocytes 69 % 42-75 Automated blood lymphocytes/100 leukocytes 20 % 12-44 Blood monocytes/100 leukocytes 9 % 0-12 Automated blood eosinophils/100 leukocytes 2 % 0-10 Automated blood basophils/100 leukocytes 1 % 0-10 Blood neutrophils automated count (number/volume) 5.7 10*3 1.8-7.8 Blood lymphocytes automated count (number/volume) 1.7 10*3 1.0-4.0 Blood monocytes automated count (number/volume) 0.7 10*3 0.0-1.0 Automated eosinophil count 0.1 10*3/uL 0.0-0.3 Automated blood basophil count (count/volume) 0.0 10*3/uL 0.0-0.1 Comprehensive metabolic panel - 04/14/17 05:48 Serum or plasma sodium measurement (moles/volume) 138 mmol/L 135-145 Serum or plasma potassium measurement (moles/volume) 4.0 mmol/L 3.6-5.0 Serum or plasma chloride measurement (moles/volume) 107 mmol/L 98-107 Carbon dioxide 22 mmol/L 21-32 Serum or plasma anion gap determination (moles/volume) 9 mmol/L 5-14 Serum or plasma urea nitrogen measurement (mass/volume) 10 mg/dL 7-18 Serum or plasma creatinine measurement (mass/volume) 0.82 mg/dL 0.60-1.30 Serum or plasma urea nitrogen/creatinine mass ratio 12 NRG Serum or plasma creatinine measurement with calculation of estimated glomerular filtration rate > NRG Serum or plasma glucose measurement (mass/volume) 110 mg/dL 70-105 Serum or plasma calcium measurement (mass/volume) 8.9 mg/dL 8.5-10.1 Serum or plasma total bilirubin measurement (mass/volume) 0.5 mg/dL 0.1-1.0 Serum or plasma alkaline phosphatase measurement (enzymatic activity/volume) 131 U/L 40-136 Serum or plasma aspartate aminotransferase measurement (enzymatic activity/ volume) 22 U/L 5-34 Serum or plasma alanine aminotransferase measurement (enzymatic activity/volume ) 13 U/L 0-55 Serum or plasma protein measurement (mass/volume) 6.4 g/dL 6.4-8.2 Serum or plasma albumin measurement (mass/volume) 3.3 g/dL 3.2-4.5 Capillary blood glucose measurement by glucometer (mass/volume) - 04/14/17 11: 08 Capillary blood glucose measurement by glucometer (mass/volume) 228 mg/dL 70-110 DIFFERENTIAL, MANUAL - 09/28/17 09:12 ABSOLUTE NEUTROPHILS 4740 cells/uL 1311-6831 ABSOLUTE MONOCYTES 790 cells/uL 200-950 ABSOLUTE EOSINOPHILS 79 cells/uL 15-500 ABSOLUTE BASOPHILS 0 cells/uL 0-200 NEUTROPHILS 60.0 % NRG LYMPHOCYTES 29.0 % NRG MONOCYTES 10.0 % NRG EOSINOPHILS 1.0 % NRG BASOPHILS 0 % NRG ABSOLUTE LYMPHOCYTES 2291 cells/uL 850-3900 PLATELET ESTIMATION ADEQUATE ADEQUATE Encounters ACCT No. Visit Date/Time Discharge Status Pt. Type Provider Facility Loc./Unit Complaint [id number] 02/24/2013 11:17:00 02/24/2013 23:59:59 CLS Outpatient ASUNCION TURCIOS APRN [id number] 02/24/2013 11:17:00 02/24/2013 23:59:59 CLS Outpatient KINGS NIETO DO [id number] 12/25/2012 15:06:00 12/25/2012 23:59:59 CLS Outpatient KINGS NIETO DO [id number] 04/13/2017 16:41:00 04/14/2017 12:00:00 DIS Inpatient GALLO LEVINE DO [facility] 4TH ACUTE COLITIS,DM E HYPERGLYCEMIA,H/O SEIZURES- [id number] 08/27/2015 11:13:00 08/27/2015 13:16:00 DIS Emergency TARUN ANGEL, BRUNILDA Tong [facility] ER RIGHT SIDE WEAKNESS [id number] 06/05/2017 15:20:00 06/05/2017 23:59:59 CLS Outpatient ASUNCION TURCIOS APRN CHCK RONAN [id number] 09/28/2017 09:00:00 Document Registration
--- OUTSIDE RECORDS SUMMARY | 2017-12-18 18:17 | XMS REPORT ---
Author Author KLEVER HUNT Organization [facility] Address [address] [place] [address] Care Team Providers Care Color Artist Name Role Phone KLEVER HUNT Unavailable PROBLEMS Type Condition ICD9-CM Code ENG06-FM Code Onset Dates Condition Status SNOMED Code Problem Alzheimer''s disease with early onset G30.0 Active 1313136 Problem COPD mixed type J44.9 Active 75970334 Problem Type 2 diabetes mellitus with hyperglycemia, without long-term current use of insulin E11.65 Active 17424389 Problem Mixed hyperlipidemia E78.2 Active 542276877 Problem Dementia in other diseases classified elsewhere with behavioral disturbance F02.81 Active 030620897 Problem Seizure disorder G40.909 Active 677064125 Problem Chronic GERD K21.9 Active 103101967 Problem Mood disorder F39 Active 02613615 Problem Essential hypertension I10 Active 55796478 ALLERGIES No Information ENCOUNTERS Encounter Location Date Diagnosis [id number] [place] [id number] Sep, [place] [id number] [place] [address] [id number] Sep, Alzheimer''s disease with early onset G30.0 ; Type 2 diabetes mellitus with hyperglycemia, without long-term current use of insulin E11.65 ; Seizure disorder G40.909 and Mixed hyperlipidemia E78.[address] [place] [address] [id number] Jul, Mood disorder F39 [place] [id number] [place] [address] [id number] May, Alzheimer''s disease with early onset G30.0 [...] hypertension I10 and History of BPH Z87.438 [facility] [id number] [place] [address] [phone] May, [facility] [id number] [place] [phone] May, [facility] [id number] [place] [address] May, [facility] [id number] [place] [address] May, [facility] [id number] [place] [address] [phone] May, [facility] [id number] [place] [address] [id number] May, [facility] [id number] [place] [address]78[address]- [address] May, [facility] [id number] [place] [address] [phone] Apr, [facility] [id number] [place] [address] [phone] Apr, [facility] [id number] [place] [address] [phone] Apr, [facility] [address] [place] [address]- [address] Apr, [facility] [id number] [place] [address] [phone] Mar, [facility] [id number] [place] [address] Mar, [facility] [id number] [phone] Mar, [facility] [id number] [place] [address] Mar, [facility] [address] [facility] [id number] [place] [phone] Mar, [facility] [id number], [place] [address] Mar, [facility] [address] [id number] [id number] Feb, [facility] [id number], [place] [address] Feb, [facility] [id number], [place] [phone] Feb, [facility] [address], [place] [address] Feb, [facility] [id number] [id number] Jan, [facility] [address], [place] [address] Jan, [facility] [id number], [place] [id number] Dec, [facility] [id number], [place] [address] Dec, IMMUNIZATIONS No Known Immunizations SOCIAL HISTORY Never Assessed REASON FOR VISIT med question PLAN OF CARE VITAL SIGNS MEDICATIONS Medication Instructions Dosage Frequency Start Date End Date Duration Status Olanzapine 10 MG Orally Once a day 1 tablet 24h 0 days Active RESULTS No Results [...]
--- OUTSIDE RECORDS SUMMARY | 2017-12-18 18:17 | XMS REPORT ---
Author Author KLEVER HUNT Organization [facility] Address [address] [place] [address] Care Team Providers Care Molded Goods Inspector Trimmer Name Role Phone KLEVER HUNT Unavailable PROBLEMS Type Condition ICD9-CM Code [id number] Code Onset Dates Condition Status SNOMED Code Problem Alzheimer''s disease with early onset G30.0 Active 8709808 Problem COPD mixed type J44.9 Active 31614392 Problem Type 2 diabetes mellitus with hyperglycemia, without long-term current use of insulin E11.65 Active 53862079 Problem Mixed hyperlipidemia E78.2 Active 804008268 Problem Dementia in other diseases classified elsewhere with behavioral disturbance F02.81 Active 615395465 Problem Seizure disorder G40.909 Active 848508583 Problem Chronic GERD K21.9 Active 810584800 Problem Mood disorder F39 Active 10503128 Problem Essential hypertension I10 Active 77288300 ALLERGIES No Information ENCOUNTERS Encounter Location Date Diagnosis [id number] [place] [address] [id number] Oct, Alzheimer''s disease with early onset G30.0 ; Dementia in other diseases classified elsewhere with behavioral disturbance F02.81 ; Type 2 diabetes mellitus with hyperglycemia, without long-term current use of insulin E11.65 ; Seizure disorder G40.909 ; Mixed hyperlipidemia E78.2 ; Mood disorder F39 ; COPD mixed type J44.9 ; Chronic GERD K21.9 ; Essential hypertension I10 and History of BPH Z87.438 [place] [id number] [place] [address] [id number] Sep, Alzheimer''s disease with early onset G30.0 ; Type 2 diabetes mellitus with hyperglycemia, without long-term current use of insulin E11.65 ; Seizure disorder G40.909 and Mixed hyperlipidemia E78.2 [place] [id number] [place] [address] [id number] Jul, Mood disorder F39 [facility] [id number] [place] [address] [id number] May, Alzheimer''s disease with early onset G30.0 [...] hypertension I10 and History of BPH Z87.438 [facility] [id number] [place] [address] [id number] May, [facility] [id number] [place] [address] May, [facility] [id number] [place] [address]- 7616 May, [facility] [id number] [place] [address]66- 4152 May, [facility] [id number] [place] [address] [id number] May, [facility] [id number] [place] [address] [id number] May, [facility] [id number] [place] [address]74- [address]36 May, [facility] [id number] [place] [address] [id number] Apr, [facility] [id number] [place] [address] [phone]- 5406 Apr, [facility] [id number] [place] [address] [id number] Apr, [facility] [id number] [place] [address]40- [phone] Apr, [facility] [id number] [place] [address] [id number] Mar, [facility] [address], [place] [address] Mar, [facility] [id number] [id number] Mar, [facility] [address], [place] [address] 2546 Mar, [facility] [id number], [place] [id number] Mar, [facility] [address], [place] [address] 2546 Mar, [facility] [id number] [place] [address] [id number] Feb, [facility] [address], [place] [address] Feb, [facility] [id number] [id number] Feb, [facility] [address], [place] [address] Feb, [facility] [address] [id number] Jan, [facility] [address], [place] [address] Jan, [facility] [address] [id number] Dec, [facility] [address], [place] [address] Dec, IMMUNIZATIONS No Known Immunizations SOCIAL HISTORY Never Assessed REASON FOR VISIT Lab (walk-in) PLAN OF CARE VITAL SIGNS MEDICATIONS Medication Instructions Dosage Frequency Start Date End Date Duration Status Zyrtec Allergy 10 mg Orally Once a day 1 tablet 24h Sep, 0 days Active GlipiZIDE 5 mg Orally Once a day 1 tablet 24h 0 days Active RESULTS No Results PROCEDURES Procedure Date Ordered Result Body Site LAB NOT BILLED BY [facility] Sep 28, 2017 TERRI MCCONNELL* Sep 28, 2017 INSTRUCTIONS MEDICATIONS ADMINISTERED No Known Medications [...]
--- OUTSIDE RECORDS SUMMARY | 2017-12-18 18:17 | XMS REPORT ---
Author Author KLEVER HUNT Organization [facility] Address [address] [place] [address] Care Team Providers Care Hand Cigar Maker Name Role Phone KLEVER HUNT Unavailable PROBLEMS Type Condition ICD9-CM Code [id number] Code Onset Dates Condition Status SNOMED Code Problem Alzheimer''s disease with early onset G30.0 Active 5276267 Problem COPD mixed type J44.9 Active 54052427 Problem Type 2 diabetes mellitus with hyperglycemia, without long-term current use of insulin E11.65 Active 88905573 Problem Mixed hyperlipidemia E78.2 Active 754221982 Problem Dementia in other diseases classified elsewhere with behavioral disturbance F02.81 Active 111636526 Problem Seizure disorder G40.909 Active 600582376 Problem Chronic GERD K21.9 Active 730203856 Problem Mood disorder F39 Active 78852590 Problem Essential hypertension I10 Active 82754936 ALLERGIES No Information ENCOUNTERS Encounter Location Date Diagnosis [facility] [id number] [place] [address] [id number] Jul, Mood disorder F39 [facility] [id number] [id number] May, Alzheimer''s disease with early onset G30.0 [...] hypertension I10 and History of BPH Z87.438 [facility] [address] [id number] [phone] May, [facility] [address]005[address], [place] [address] May, [facility] [place] [facility] [address] [facility] [id number] [address] May, [facility] [place] [facility] [address] [facility] [id number], [place] [address] May, [facility] [address] [facility] [id number] [place] [id number] May, [facility] [address] [facility] [id number] [place] [id number] May, [facility] [place] [facility] [address] [facility] [id number], [place] [address] May, [facility] [address] [facility] [id number] [place] [id number] Apr, [facility] [place] [facility] [address], [place] [address] Apr, [facility] [address] [id number] [phone] Apr, [facility] [place] [facility] [address], [place] [address] Apr, [facility] [address] [id number][place] [id number] Mar, [facility] [place] [facility] [address], [place] [address] Mar, [facility] [address] [facility] [id number][place] [id number] Mar, [facility] [place] [facility] [address] [facility] [id number], [place] [address] Mar, [facility] [address] [facility] [id number][place] [id number] Mar, [facility] [place] [facility] [address], [place] [address] Mar, [facility] [address] [facility] [id number][place] [id number] Feb, [facility] [place] [facility] [address]100[place], [place] [address] Feb, [facility] [address] [facility] [id number] [place] [id number] Feb, [facility] [address] [id number], [place] [address] Feb, [facility] 120 [facility] [id number][place] [id number] Jan, [facility] [address] [id number], [place] [address] Jan, [address] [id number] [id number] Dec, [facility] [address] [id number], [place] [address]- [address] Dec, IMMUNIZATIONS No Known Immunizations SOCIAL HISTORY Never Assessed REASON FOR VISIT Medication refill request PLAN OF CARE VITAL SIGNS MEDICATIONS Unknown Medications RESULTS No Results PROCEDURES No Known procedures [...]
--- OUTSIDE RECORDS SUMMARY | 2017-12-18 18:17 | XMS REPORT ---
Author Author KLEVER HUNT Organization [facility] Address [address] [place] [address] Care Team Providers Care Mechanics Handyman Name Role Phone KLEVER HUNT Unavailable PROBLEMS Type Condition ICD9-CM Code GEN05-PC Code Onset Dates Condition Status SNOMED Code Problem Alzheimer''s disease with early onset G30.0 Active 2197740 Problem COPD mixed type J44.9 Active 96203867 Problem Type 2 diabetes mellitus with hyperglycemia, without long-term current use of insulin E11.65 Active 20191912 Problem Mixed hyperlipidemia E78.2 Active 602461528 Problem Dementia in other diseases classified elsewhere with behavioral disturbance F02.81 Active 480375847 Problem Seizure disorder G40.909 Active 861296157 Problem Chronic GERD K21.9 Active 007697295 Problem Mood disorder F39 Active 22471626 Problem Essential hypertension I10 Active 74402003 ALLERGIES Substance Reaction Event Type Date Status Morphine vomiting Drug Allergy May, Active Codeine vomiting Drug Allergy May, Active ENCOUNTERS Encounter Location Date Diagnosis [address] [place] [address] [id number] Jul, Mood disorder F39 [address] [place] [address] [id number] May, Alzheimer''s disease with early onset G30.0 [...] hypertension I10 and History of BPH Z87.438 [address] [id number] May, [facility] [place] [facility] [address] [facility] [id number] [place] [address] 14 May, 2014 [facility] [place] [facility] [address] [facility] [id number] [place] [address]- [address] May, [facility] [place] [facility] [address] [facility] [id number] [place] [address] May, [facility] [address] [id number] [place] [id number] May, [facility] [address] [facility] [id number] [place] [id number] May, [facility] [place] [facility] [address] [facility] [id number] [place] [address]- [address] May, [facility] [address] [facility] [id number] [place] [id number] Apr, [facility] [place] [facility] [address] [address] Apr, [facility] [address] [facility] [id number][place] [id number] Apr, [facility] [place] [facility] [address] [facility] [id number] [place] [address]- [address] Apr, [facility] [address] [facility] [id number][place] [id number] Mar, [facility] [place] [facility] [address] [facility] [id number] [place] [address] Mar, [facility] [address] [facility] [id number], [place] [id number] Mar, [facility] [place] [facility] [address] [facility] [id number] [place] [address]- [address] Mar, [facility] [address] [facility] [id number] [place] [id number] Mar, [facility] [place] [facility] [address] [facility] [id number] [place] [address]- [address] Mar, [facility] [address] [facility] [id number][place] [id number] Feb, [facility] [address] [facility] [id number] [place] [address]- [address] Feb, [facility] [address] [id number], [place] [id number] Feb, [facility] [address] [facility] [id number] [place] [address]- [address] Feb, [facility] [address] [facility] [id number], [place] [id number] Jan, [facility] [address] [facility] [id number] [place] [address]- [address] Jan, [facility] [id number], [place] [id number] Dec, [facility] [address] [facility] [id number] [place] [address] 2546 Dec, IMMUNIZATIONS No Known Immunizations SOCIAL HISTORY Never Assessed REASON FOR VISIT Establish Care, med refills Misbah MORAN PLAN OF CARE Activity Details Follow Up 4 Weeks. Reason:CHM Alz/HTN/mood disorder VITAL SIGNS Height 68.5 in 2017-06-05 Weight 202.4 lbs 2017-06-05 Temperature 96.7 degrees Fahrenheit 2017-06-05 Heart Rate 62 bpm 2017-06-05 Respiratory Rate 18 2017-06-05 BMI 30.32 kg/m2 2017-06-05 Blood pressure systolic 118 mmHg 2017-06-05 Blood pressure diastolic 68 mmHg 2017-06-05 MEDICATIONS Medication Instructions Dosage Frequency Start Date End Date Duration Status Xanax 1 MG Orally 2 times a day 1 tablet 12h 0 Active Singulair 10 MG Orally Once a day 1 tablet in the evening 24h 0 Active Effexor XR 75 MG Orally Once a day 1 capsule with food 24h 0 Active Olanzapine 5 mg Orally 2 times a day 1 tablet 12h 0 Active Norvasc 5 mg Orally 2 times a day 1 tablet 12h 0 Active Rivastigmine Tartrate 6 MG Orally Twice a day 1 capsule with food 12h 0 Active Flomax 0.4 MG Orally Once a day 1 capsule 24h 0 Active Zyrtec Allergy 10 MG Orally Once a day 1 tablet 24h 0 Active Aspirin EC 325 MG Orally Once a day 1 tablet 24h 0 Active Omeprazole 40 MG Orally Once a day 1 capsule 24h 0 Active Keppra 500 MG Orally Twice a day 1 tablet 12h 0 Active Centrum Silver - Active Tizanidine HCl 4 MG Orally at bedtime 2 capsule as needed 0 Active Lipitor 10 MG Orally Once a day 1 tablet 24h 0 Active GlipiZIDE 5 MG Orally Once a day 1 tablet 24h 0 Active Lopid 600 MG Orally at bedtime 1 tablet 0 Active Promethazine HCl 25 MG Orally every 12 hrs 1 tablet as needed 12h Active RESULTS Name Result Date Reference Range A1C (IN HOUSE) 2017-06-05 A1C IN HOUSE 8.4 4.3 - 5.6 % Previous A1c Lot [id number] Exp date 02/2019 PROCEDURES Procedure Date Ordered Result Body Site GLYCATED HEMOGLOBIN TEST June 05, 2017 [facility] VISIT NEW PATIENT June 05, 2017 INSTRUCTIONS MEDICATIONS ADMINISTERED No Known Medications [...]
--- NOTE | 2017-12-18 18:46 | ED General ---
General Chief Complaint: General Problems/Pain Stated Complaint: ABNORMAL BLOOD PRESSURE;SWEATING Source of Information: Patient (PT WITH SOME MEMORY IMPAIRMENT), Spouse ( TRIES TO DO ALL TALKING FOR PT) History of Present Illness Date Seen by Provider: Dec 18, 2017 Time Seen by Provider: 18:30 Initial Comments PT ARRIVES VIA POV FROM HOME WITH C/O SWEATS OFF AND ON FOR THE LAST 3 DAYS STATES HE WILL GET A HOT FLASH AND BREAK OUT INTO A SWEAT, THAT LASTS FOR ABOUT 5 MINUTES AND THEN HE IS FINE CHECKED TEMP TODAY AND IT WAS 97 AND THEN LATER WAS 99.3 + NAUSEA, NO VOMITING HAS CONTINUED TO EAT AND DRINK-- STATES SHE HAS BEEN "FORCING" HIM TO DRINK GATORADE, OTHER LIQUIDS PT DENIES ANY PAIN ANYWHERE NO CHEST PAIN NO ABDOMINAL PAIN PT DENIES HEADACHE, BUT STATES HE DID COMPLAIN OF HEADACHE A FEW DAYS AGO NO VISION CHANGES NO DIZZINESS NO SHORTNESS OF BREATH--PT HAS COPD AND IS ALWAYS A LITTLE SHORT OF BREATH AND HAS OCCASIONAL CHRONIC COUGH. OCCASIONAL SWELLING IN LEGS/FEET, BUT IS NORMAL FOR HIM STATES HIS URINE HAS BEEN DARK THE LAST COUPLE OF DAYS STATES HE FEELS FINE EXCEPT FOR THE SWEATS LATER STATES THAT HE HAS HAD THIS BEFORE WHEN HE HAS HAD AN INFECTION ALSO STATES HIS BLOOD PRESSURE HAS BEEN HIGH--SHE HAS CHECKED HIS BLOOD PRESSURE A MULTITUDE OF TIMES THE LAST 2 DAYS PT IS SUPPOSED TO BE ON BLOOD PRESSURE MEDICATIONS, BUT SHE STOPPED GIVING THEM TO HIM A FEW MONTHS AGO ( JULY OR AUGUST OF THIS YEAR ), BECAUSE HIS BLOOD PRESSURES WERE NORMAL--120'S/80'S. SHE DID NOT DISCUSS THIS WITH PT'S DR, SHE STOPPED THEM HERSELF. SHE GAVE HIM A PILL THIS AM BECAUSE OF ELEVATED BLOOD PRESSURE. THIS IS FIRST TIME HE HAS HAD IT IN MONTHS. BLOOD PRESSURES HAVE RANGED FORM 123/81 TO 171/106 BLOOD SUGARS HAVE RANGES FROM 111 TO 186 SHE STATES HE HAS BEEN TIRED ALOT AND "EXHAUSTED" PCP: HUSSEIN REYES Allergies and Home Medications Allergies Coded Allergies: codeine (Unverified Allergy, Unknown, 08/27/15) morphine (Unverified Adverse Reaction, Unknown, nausea, 08/27/15) Home Medications Alprazolam 1 Mg Tablet, 1 MG PO TID, (Reported) Amlodipine Besylate 5 Mg Tablet, 5 MG PO BID, (Reported) Aspirin 325 Mg Tablet, 325 MG PO DAILY, (Reported) Atorvastatin Calcium 10 Mg Tablet, 10 MG PO HS, (Reported) Carisoprodol 350 Mg Tablet, 350 MG PO HS PRN for SLEEP, (Reported) Cetirizine HCl 10 Mg Capsule, 10 MG PO DAILY, (Reported) Gemfibrozil 600 Mg Tablet, 600 MG PO HS, (Reported) Glipizide 5 Mg Tablet, 5 MG PO DAILY, (Reported) Levetiracetam 500 Mg Tablet, 500 MG PO BID, (Reported) Montelukast Sodium 10 Mg Tablet, 10 MG PO HS, (Reported) Multivit-Min/FA/Lycopene/Lut 1 Each Tablet, 1 EACH PO DAILY, (Reported) Olanzapine 5 Mg Tablet, 5 MG PO BID, (Reported) Omeprazole 40 Mg Capsule.dr, 40 MG PO DAILY, (Reported) Promethazine HCl 25 Mg Tablet, 25 MG PO DAILY PRN for NAUSEA/VOMITING, (Reported ) Rivastigmine Tartrate 6 Mg Capsule, 6 MG PO BID, (Reported) Tamsulosin HCl 0.4 Mg Cap, 0.4 MG PO HS, (Reported) Tizanidine HCl 4 Mg Tablet, 8 MG PO HS, (Reported) Venlafaxine HCl 75 Mg Cap.er.24h, 75 MG PO HS, (Reported) Patient Home Medication List Home Medication List Reviewed: Yes Review of Systems Review of Systems Constitutional: see HPI, diaphoresis; No dizziness; fever, malaise, weakness EENTM: no symptoms reported Respiratory: see HPI, cough, dyspnea on exertion Cardiovascular: No chest pain; edema; No palpitations, No syncope Gastrointestinal: see HPI; No abdominal pain; nausea; No vomiting Genitourinary: see HPI; No decreased output Musculoskeletal: no symptoms reported Skin: no symptoms reported Psychiatric/Neurological: No Symptoms Reported; Denies Headache, Denies Numbness, Denies Paresthesia, Denies Seizure, Denies Tingling, Denies Weakness Hematologic/Lymphatic: No Symptoms Reported Immunological/Allergic: no symptoms reported Past Bnwolze-Lmyrrd-Pebzdn Hx Patient Social History Alcohol Use: Past History (HISTORY OF ABUSE) Recreational Drug Use: Yes (THC) Drug of Choice: THC Smoking Status: Former Smoker Type Used: Cigarettes Former Smoker, Quit: Apr 13, 2009 2nd Hand Smoke Exposure: Yes Recent Foreign Travel: No Contact w/Someone Who Travel: No Recent Hopitalizations: No Immunizations Up To Date Tetanus Booster (TDap): Unknown PED Vaccines UTD: Yes Seasonal Allergies Seasonal Allergies: No Past Medical History Surgeries: Yes (BACK SURGERY; BOWEL RESECTION FOR DIVERTICULITIS; COLONSCOPY > 12 YEARS AGO ) Abdominal, Appendectomy, Bowel Surgery, Orthopedic Respiratory: Yes COPD Currently Using CPAP: No Currently Using BIPAP: No Cardiac: Yes Coronary Artery Disease, High Cholesterol, Hypertension Neurological: Yes Dementia, Seizure Disorder Sexually Transmitted Disease: No HIV/AIDS: No Genitourinary: Yes Prostate Problems Gastrointestinal: Yes (COLITIS) Gastroesophageal Reflux, Diverticulosis Musculoskeletal: Yes Back Injury, Chronic Back Pain Endocrine: Yes Diabetes, Non-Insulin dep HEENT: No Cancer: Yes Skin Did You Recieve Any Treatments: Yes What Type of Treatment Did You: Surgical Intervention Psychosocial: Yes Anxiety, Depression Integumentary: No (RING WORM ON HANDS-TREATED) Blood Disorders: No Adverse Reaction/Blood Tranf: No Family Medical History Alzheimer's disease 19 MOTHER Cardiovascular disease 19 FATHER 19 MOTHER Completed stroke 19 FATHER Respiratory disorder 19 FATHER No Pertinent Family Hx Physical Exam Vital Signs Vital Signs - First Documented 12/18/17 18:17 Temp 96.4 Pulse 77 Resp 18 B/P (MAP) 157/101 (119) Pulse Ox 98 O2 Delivery Room Air Capillary Refill : Height, Weight, BMI Height: 5'11.00" Weight: 208lbs. 6.0oz. 94.002345dd; 29.1 BMI Method:Estimated General Appearance: No Apparent Distress, WD/WN, Other (REEKS OF CIGARETTES; LAYING OUTSTRETCHED, DOES NOT APPEAR TO BE IN ANY DISCOMFORT OR DISTRESS.TALKS NON-STOP AT LENGTH ) HEENT: PERRL/EOMI Neck: Full Range of Motion, Normal Inspection, Non Tender, Supple Respiratory: Normal Breath Sounds, No Accessory Muscle Use, No Respiratory Distress Cardiovascular: Regular Rate, Rhythm, No Edema, No JVD, No Murmur, Normal Peripheral Pulses, Extra Beats (FREQUENT PVC'S WITH BIGEMINY/TRIGEMINY/ QUADRIGEMINY) Gastrointestinal: Normal Bowel Sounds, No Organomegaly, No Pulsatile Mass, Non Tender, Soft Back: Normal Inspection, No CVA Tenderness Extremity: Normal Capillary Refill, Normal Inspection, Normal Range of Motion, Non Tender, No Calf Tenderness, No Pedal Edema Neurologic/Psychiatric: Alert, Oriented x3 (BUT SOME LIMITED MEMORY), No Motor/ Sensory Deficits, Normal Mood/Affect (BUT SOMEWHAT ANXIOUS), paralegals II-XII Norm as Tested; No Abnormal Cerebellar Tests Skin: Normal Color, Warm/Dry, Diaphoresis (AT TIMES, BRIEF EPISODES LASTING A MINUTE OR TWO, THEN IS BACK TO NORMAL. ); No Rash Focused Exam Lactate Level 12/18/17 18:50: Lactic Acid Level 2.05*H Lactic Acid Level Laboratory Tests Test 12/18/17 18:50 Lactic Acid Level 2.05 MMOL/L (0.50-2.00) *H Progress/Results/Core Measures Suspected Sepsis SIRS Temperature: Pulse: Respiratory Rate: Laboratory Tests 12/18/17 18:50: White Blood Count 10.5 Blood Pressure / Mean: 12/18/17 18:50: Lactic Acid Level 2.05*H Laboratory Tests 12/18/17 18:50: Creatinine 1.43H, INR Comment 1.0, Platelet Count 322, Total Bilirubin 0.7 Results/Orders Lab Results Laboratory Tests Test 12/18/17 18:50 12/18/17 20:25 Range/Units White Blood Count 10.5 4.3-11.0 10^3/uL Red Blood Count 5.49 4.35-5.85 10^6/uL Hemoglobin 15.5 13.3-17.7 G/DL Hematocrit 45 40-54 % Mean Corpuscular Volume 82 80-99 FL Mean Corpuscular Hemoglobin 28 25-34 PG Mean Corpuscular Hemoglobin Concent 34 32-36 G/DL Red Cell Distribution Width 14.3 10.0-14.5 % Platelet Count 322 130-400 10^3/uL Mean Platelet Volume 10.0 7.4-10.4 FL Neutrophils (%) (Auto) 74 42-75 % Lymphocytes (%) (Auto) 18 12-44 % Monocytes (%) (Auto) 7 0-12 % Eosinophils (%) (Auto) 1 0-10 % Basophils (%) (Auto) 0 0-10 % Neutrophils # (Auto) 7.8 1.8-7.8 X 10^3 Lymphocytes # (Auto) 1.9 1.0-4.0 X 10^3 Monocytes # (Auto) 0.7 0.0-1.0 X 10^3 Eosinophils # (Auto) 0.1 0.0-0.3 10^3/uL Basophils # (Auto) 0.0 0.0-0.1 10^3/uL Prothrombin Time 12.8 12.2-14.7 SEC INR Comment 1.0 0.8-1.4 Activated Partial Thromboplast Time 29 24-35 SEC Sodium Level 138 135-145 MMOL/L Potassium Level 4.1 3.6-5.0 MMOL/L Chloride Level 102 98-107 MMOL/L Carbon Dioxide Level 21 21-32 MMOL/L Anion Gap 15 H 5-14 MMOL/L Blood Urea Nitrogen 16 7-18 MG/DL Creatinine 1.43 H 0.60-1.30 MG/DL Estimat Glomerular Filtration Rate 50 BUN/Creatinine Ratio 11 Glucose Level 214 H 70-105 MG/DL Lactic Acid Level 2.05 *H 0.50-2.00 MMOL/L Calcium Level 10.3 H 8.5-10.1 MG/DL Corrected Calcium 10.1 8.5-10.1 MG/DL Magnesium Level 1.9 1.8-2.4 MG/DL Total Bilirubin 0.7 0.1-1.0 MG/DL Aspartate Amino Transf (AST/SGOT) 34 5-34 U/L Alanine Aminotransferase (ALT/SGPT) 24 0-55 U/L Alkaline Phosphatase 126 40-136 U/L Myoglobin 58.8 10.0-92.0 NG/ML Troponin I < 0.30 <0.30 NG/ML B-Type Natriuretic Peptide 11.5 <100.0 PG/ML Total Protein 7.5 6.4-8.2 GM/DL Albumin 4.2 3.2-4.5 GM/DL Amylase Level 33 25-125 U/L Lipase 28 8-78 U/L Free Thyroxine 1.14 0.70-1.48 NG/DL TSH [place] Testing 6.42 H 0.35-4.94 UIU/ML Serum Alcohol < 10 <10 MG/DL Urine Color YELLOW Urine Clarity CLEAR Urine pH 6 5-9 Urine Specific [place] 1.025 H 1.016-1.022 Urine Protein 3+ H NEGATIVE Urine Glucose (UA) NEGATIVE NEGATIVE Urine Ketones NEGATIVE NEGATIVE Urine Nitrite NEGATIVE NEGATIVE Urine Bilirubin NEGATIVE NEGATIVE Urine Urobilinogen 1 NORMAL MG/DL Urine Leukocyte Esterase 1+ H NEGATIVE Urine RBC (Auto) 1+ H NEGATIVE Urine RBC 2-5 H /HPF Urine WBC 0-2 /HPF Urine Squamous Epithelial Cells 10-25 H /HPF Urine Crystals NONE /LPF Urine Bacteria NEGATIVE /HPF Urine Casts NONE /LPF Urine Mucus LARGE H /LPF Urine Culture Indicated NO Micro Results Microbiology 12/18/17 Influenza Types A,B Antigen (NBA) - Final, Complete My Orders Orders - RABIA BASSETT DO Cbc With Automated Diff (12/18/17 18:30) Magnesium (12/18/17 18:30) Chest 1 View, Ap/Pa Only (12/18/17 18:30) Ekg Tracing (12/18/17 1830) Cardiac Profile 1 (12/18/17 18:) Comprehensive Metabolic Panel (12/18/17) Myoglobin Serum (12/18/17) Protime With Inr (12/18/17:) Partial Thromboplastin Time (12/18/17 18:) O2 (12/18/17:) Monitor-Rhythm Ecg Trace Only (12/18/17) Lipid Panel (12/19/17 06:00) Saline Lock/Iv-Start (12/18/17 18:30) Lipase (12/18/17 18:30) Amylase (12/18/17 18:30) BNP (12/18/17:) Lactic Acid Analyzer (12/18/17 18:40) Thyroid Analyzer (12/18/17 18:40) Ua Culture If Indicated (12/18/17 18:40) Blood Culture (12/18/17 18:40) Influenza A And B Antigens (12/18/17 18:40) Alcohol (12/18/17 18:55) Drug Screen Stat (Urine) (12/18/17 18:55) Troponin I (12/18/17 18:55) Free T4 (Free Thyroxine) (12/18/17 18:50) Saline Lock/Iv-Start (12/18/17 20:08) Ns Iv 1000 Ml (Sodium Chloride 0.9%) (12/18/17 20:08) Ns Iv 1000 Ml (Sodium Chloride 0.9%) (12/18/17 20:10) Hydralazine Injection (Apresoline Inject (12/18/17 20:30) Lorazepam Injection (Ativan Injection) (12/18/17 20:30) Urine Culture (12/18/17 20:44) Rocephin 1 Gm Iv (1 X Dose) (12/18/17 20:45) Medications Given in ED Current Medications Medications Dose Ordered Sig/Cristela Route Start Time Stop Time Status Last Admin Dose Admin Hydralazine HCl 10 mg ONCE ONCE IV 12/18/17 20:30 12/18/17 20:31 DC 12/18/17 20:30 10 MG Lorazepam 1 mg ONCE ONCE IVP 12/18/17 20:30 12/18/17 20:31 DC 12/18/17 20:30 1 MG Sodium Chloride 1,000 ml @ 0 mls/hr Q0M ONCE IV 12/18/17 20:08 12/18/17 20:13 DC 12/18/17 20:11 1,000 MLS/HR Vital Signs/I&O 12/18/17 12/18/17 18:17 18:45 Temp 96.4 Pulse 77 Resp 18 B/P (MAP) 157/101 (119) Pulse Ox 98 98 O2 Delivery Room Air Room Air Capillary Refill : Progress Note : Progress Note PT WITH INCREASING ANXIETY AND SOME AGITATION, VERY ANXIOUS TO GO HOME. GIVEN HYDRALAZINE AND ATIVAN FOR INCREASED BP AND ANXIETY--BP DOWN AND PT CALMER AT DISMISSAL ECG Initial ECG Impression Date: Dec 18, 2017 Initial ECG Impression Time: 18:44 Initial ECG Rate: 95 Initial ECG Rhythm: Normal Sinus (WITH PVC'S AND TRIGEMINY) Initial ECG Impression: Nonspecific Changes Diagnostic Imaging Comments CXR--NO ACUTE PROCESS, PER RADIOLOGIST REPORT @ 1920 Reviewed: Reviewed by Me Departure Impression Primary Impression: Urinary tract infection Additional Impressions: Uncontrolled hypertension NIDDM Mild dehydration Renal insufficiency Anxiety Disposition: HOME, SELF-CARE Condition: Improved Departure-Patient Inst. Referrals: JONO YARBROUGH APRN (PCP/Family) Primary Care Physician Patient Instructions: Blood Glucose Monitoring, Diabetes Type 2 (DC), High Blood Pressure (DC), Urinary Tract Infection, Adult (DC) Add. Discharge Instructions: INCREASE YOUR FLUIDS TYLENOL NEEDED FOR PAIN OR FEVER TAKE YOUR BLOOD PRESSURE MEDICATION TWICE A DAY EVERY DAY PRESCRIBED FOLLOW UP WITH YOUR DR THIS WEEK FOR FURTHER CARE RETURN TO ER IF WORSE All discharge instructions reviewed with patient and/or family. Voiced understanding. Scripts Sulfamethoxazole/Trimethoprim (Bactrim Ds Tablet) 1 Each Tablet 1 EACH PO BID, #20 TAB Prov: RABIA BASSETT DO 12/18/17 RABIA BASSETT DO Dec 18, 2017 18:46
[2017-12-18 19:07] LABS: BASOPHILS % (AUTO) 0 % (0-10); EOSINOPHILS # (AUTO) 0.1 10^3/uL (0.0-0.3); EOSINOPHILS % (AUTO) 1 % (0-10); HEMATOCRIT 45 % (40-54); HEMOGLOBIN 15.5 G/DL (13.3-17.7); LYMPHOCYTES # (AUTO) 1.9 X 10^3 (1.0-4.0); LYMPHOCYTES % (AUTO) 18 % (12-44); MEAN CORPUSCULAR HEMOGLOBIN 28 PG (25-34); MEAN CORPUSCULAR HGB CONC 34 G/DL (32-36); MEAN CORPUSCULAR VOLUME 82 FL (80-99); MONOCYTES # (AUTO) 0.7 X 10^3 (0.0-1.0); MONOCYTES % (AUTO) 7 % (0-12); NEUTROPHILS # (AUTO) 7.8 X 10^3 (1.8-7.8); NEUTROPHILS % (AUTO) 74 % (42-75); PLATELET COUNT 322 10^3/uL (130-400); RED BLOOD COUNT 5.49 10^6/uL (4.35-5.85); RED CELL DISTRIBUTION WIDTH 14.3 % (10.0-14.5); WHITE BLOOD COUNT 10.5 10^3/uL (4.3-11.0)
--- NOTE | 2017-12-18 19:08 | Diagnostic Imaging Report ---
INDICATION: High blood pressure. Time of exam: 6:59 PM Correlation is made with prior study from 08/27/2015. The heart size is normal. The pulmonary vascularity is unremarkable. The lungs are clear. No infiltrate, effusion or pneumothorax is detected. Impression: No acute cardiopulmonary process is detected. Dictated by: Dictated on workstation # [id number]
[2017-12-18 19:16] LABS: PROTHROMBIN TIME PATIENT 12.8 SEC (12.2-14.7)
[2017-12-18 19:27] LABS: ALANINE AMINOTRANSFERASE 24 U/L (0-55); ALBUMIN 4.2 GM/DL (3.2-4.5); ALKALINE PHOSPHATASE 126 U/L (40-136); AMYLASE 33 U/L (25-125); BILIRUBIN,TOTAL 0.7 MG/DL (0.1-1.0); BUN/CREATININE RATIO 11; CALCIUM 10.3 MG/DL (8.5-10.1); CARBON DIOXIDE 21 MMOL/L (21-32); CHLORIDE 102 MMOL/L (98-107); CREATININE SERUM 1.43 MG/DL (0.60-1.30); GFR ESTIMATED 50; GLUCOSE 214 MG/DL (70-105); LIPASE 28 U/L (8-78); MAGNESIUM 1.9 MG/DL (1.8-2.4); POTASSIUM 4.1 MMOL/L (3.6-5.0); SODIUM 138 MMOL/L (135-145); TOTAL PROTEIN 7.5 GM/DL (6.4-8.2)
[2017-12-18 19:34] LABS: MYOGLOBIN SERUM 58.8 NG/ML (10.0-92.0)
[2017-12-18 19:47] LABS: TSH (THYROID ANALYZER) 6.42 UIU/ML (0.35-4.94)
[2017-12-18] MEDS ORDERED: NS IV 1000 ML 1,000 ML IV ONE (20:08)
[2017-12-18] MEDS ORDERED: NS IV 1000 ML 1,000 ML ONE (20:10)
[2017-12-18 20:24] LABS: FREE T4 (FREE THYROXINE) 1.14 NG/DL (0.70-1.48)
[2017-12-18] MEDS ORDERED: LORazepam INJ 2 MG/ML (ATIVAN) VIAL IVP ONE (20:30)
[2017-12-18] MEDS ORDERED: hydrALAZINE (APESOLINE) 20 MG/ML VIAL IV ONE (20:30)
[2017-12-18 20:32] LABS: BILIRUBIN,URINE NEGATIVE (NEGATIVE); CLARITY,URINE CLEAR; COLOR,URINE YELLOW; GLUCOSE, URINE (UA) NEGATIVE (NEGATIVE); KETONES,URINE NEGATIVE (NEGATIVE); LEUKOCYTE ESTERASE ,URINE 1+ (NEGATIVE); NITRITE,URINE NEGATIVE (NEGATIVE); PH,URINE 6 (5-9); PROTEIN,URINE 3+ (NEGATIVE); UROBILINOGEN,URINE 1 MG/DL (NORMAL)
[2017-12-18 20:39] LABS: BACTERIA,URINE NEGATIVE /HPF; WBC,URINE 0-2 /HPF
[2017-12-18 20:45] LABS: AMPHETAMINE SCREEN, URINE POSITIVE (NEGATIVE); BARBITURATE SCREEN URINE NEGATIVE (NEGATIVE); BENZODIAZEPINES SCREEN URINE NEGATIVE (NEGATIVE); CANNABINOID SCREEN, URINE POSITIVE (NEGATIVE); COCAINE SCREEN URINE NEGATIVE (NEGATIVE); METHAMPHETAMINE SCREEN URINE S POSITIVE (NEGATIVE); OPIATE SCREEN URINE NEGATIVE (NEGATIVE)
[2017-12-18] MEDS ORDERED: cefTRIAXone FOR IV USE 1,000 MG in NS (IVPB) 50 ML IV ONE (20:45)
[2017-12-18 20:46] LABS: METHADONE STAT NEGATIVE (NEGATIVE); OXYCODONE STAT NEGATIVE (NEGATIVE); PROPOXYPHENE STAT NEGATIVE (NEGATIVE); TRICYCLIC ANTIDEPRESSANTS SCRE NEGATIVE (NEGATIVE)
[2017-12-18] MEDS ORDERED: cefTRIAXone 1 GM/10 ML for IV (ROCEPHIN) ONE (20:49)
[2017-12-18] MEDS ORDERED: NS (IVPB) 50 ML ONE (20:50)
[2017-12-18] MEDS ORDERED: SULF1TAB35 PO (20:52)
[2017-12-18 21:05] VITALS: BP 162/96
== END 2017-12-18 21:05 | disposition home or self-care (01) ==
LOC: EDUNIT# 18:11 → ER 18:13
DX: I10 Essential (primary) hypertension (principal); N39.0 Urinary tract infection, site not specified; E11.9 Type 2 diabetes mellitus without complications; E86.0 Dehydration; F41.9 Anxiety disorder, unspecified; N28.9 Disorder of kidney and ureter, unspecified; F19.10 Other psychoactive substance abuse, uncomplicated; J44.9 Chronic obstructive pulmonary disease, unspecified; I25.10 Atherosclerotic heart disease of native coronary artery without angina pectoris; E78.00 Pure hypercholesterolemia, unspecified; G40.909 Epilepsy, unspecified, not intractable, without status epilepticus; F03.90 Unspecified dementia, unspecified severity, without behavioral disturbance, psychotic disturbance, mood disturbance, and anxiety; K21.9 Gastro-esophageal reflux disease without esophagitis; F32.9 Major depressive disorder, single episode, unspecified; Z85.828 Personal history of other malignant neoplasm of skin; Z88.5 Allergy status to narcotic agent; Z88.6 Allergy status to analgesic agent; Z79.82 Long term (current) use of aspirin; Z79.84 Long term (current) use of oral hypoglycemic drugs; Z87.891 Personal history of nicotine dependence; Z90.49 Acquired absence of other specified parts of digestive tract
CPT/HCPCS: 36415; 71045; 80053; 80306; 80320; 81000; 82150; 83605; 83690; 83735; 83874; 83880; 84439; 84443; 84484; 85025; 85610; 85730; 87040; 87088; 87804; 93005; 93041; 96361; 96374; 96375